=== PATIENT | female | born 1960 | race Caucasian/White ===

== ENCOUNTER → 2023-02-25 07:41 | Outpatient (BNVA) | payer OTHER, SELFPAY | PROVIDERS: PCP Nurse Practitioner Family; Visit Provider Psychiatry & Neurology Neurology | DX: G51.32 Clonic hemifacial spasm, left (principal); R06.83 Snoring | CPT/HCPCS: 99202 ==

== ENCOUNTER 2023-05-15 07:57 | Outpatient (AMB) | payer MEDICAID, SELFPAY ==
--- NOTE | 2023-05-15 08:02 | MHC.OFFVIS ---
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 registered nurses, ID #[id number] utilized . She had a home sleep study done but was told that it was inconclusive. MRI or MRA ordered but not done due to extreme claustrophobia and anxiety. She had PRN medication for anxiety, but forgot to take it. Pt needed to reschedule, but she did not reschedule yet. Eyelid twitching about same, left eye and face twitching with occasional twitching on her right eye. Pt reports that she drinks coffee at least 1-2 cups a day, but not drink enough water. She is on magnesium oxide 250 mg daily, but she takes occaisonally. [facility] Medical History Snoring Neck pain Depression Obesity Asthma HTN (hypertension) Hemifacial spasm of left side of face Surgical History H/O: hysterectomy Hx of cholecystectomy H/O abdominoplasty Hx of bilateral breast reduction surgery H/O gastric sleeve Family History Father Cancer Mother Diabetes HTN (hypertension) Pacemaker Social History Alcohol intake: current Patient Tobacco Use Status: Never used Tobacco Review of Systems Const All systems reviewed & are unremarkable except as noted in HPI and below Physical Exam Vital Signs: Last Vital Signs Pulse 75 05/15/23 08:11 BP 102/62 05/15/23 08:11 Pulse Ox 98 05/15/23 08:11 Oxygen Delivery Method Room Air 05/15/23 08:11 Const General: cooperative and comfortable Nutritional Appearance: obese Orientation/consciousness: patient oriented x3 Limitations: physical limitations Neuro Other: mild asymmetry of face with enlarged palpebral fissures , flattening of nasolabial fold left eye and facial twitching intermittently General: patient oriented x3, tone normal, moves all extremities and no focal motor deficits Cranial nerves: Yes Facial sensation intact/muscles of mastication intact, Yes Bilaterally intact EOM present, Yes Nystagmus not present, Yes Midline tongue present and Yes Symmetric palate elevation present Cognition (Neuro): normal cognition Gait exam (Neuro): Antalgic gait present Deep tendon reflexes (DTR's): Right triceps reflex intensity grade: 1+, Left triceps reflex intensity grade: 1+, Rt Biceps (C5, C6): 1+, Left biceps reflex intensity grade: 1+, Right brachioradialis reflex intensity grade: 1+, Left brachioradialis reflex intensity grade: 1+, Right patellar reflex intensity grade: 1+ and Left patellar reflex intensity grade: 1+ Coordination: [id number] test normal Assessment & Plan Assessment & Plan (1) Hemifacial spasm of left side of face: Code(s): G51.32 - Clonic hemifacial spasm, left (2) Snoring: Code(s): R06.83 - Snoring Plan Central scheduling information given patient to reschedule MRI and MRA Brain. Will consider treatment with botox after MRI. She had home sleep test and was told that it was inconclusive, advised patient to undergo in lab study. Advised patient to limit caffeine intake and drink more water to prevent dehydration. Advised patient to try magnesium glycinate 400 mg daily. Orders: Orders RT PSG in-lab sleep study 05/15/23 E66.9 - Obesity, unspecified, I10 - Essential (primary) hypertension, R06.83 - Snoring, R40.0 - Somnolence Coding Level of Care Code Est Pt Level 4 (07975) Diagnoses Hemifacial spasm of left side of face G51.32 Snoring R06.83
[2023-05-15 08:11] VITALS: BP 102/62; PULSE 75; O2SAT 98
== END 2023-05-15 08:33 | disposition home or self-care (01) ==
PROVIDERS: PCP Nurse Practitioner Family; Visit Provider Nurse Practitioner Family
DX: G51.32 Clonic hemifacial spasm, left (principal); R06.83 Snoring
CPT/HCPCS: 99214

== ENCOUNTER → 2023-05-15 07:57 | Outpatient (BNVA) | payer OTHER, SELFPAY | PROVIDERS: PCP Nurse Practitioner Family; Visit Provider Nurse Practitioner Family | DX: G51.32 Clonic hemifacial spasm, left (principal); R40.0 Somnolence; R06.83 Snoring; E66.9 Obesity, unspecified; I10 Essential (primary) hypertension; F40.240 Claustrophobia; F41.9 Anxiety disorder, unspecified | CPT/HCPCS: 99212 ==

== ENCOUNTER 2023-06-24 10:42 | Outpatient (AMB) | payer OTHER, SELFPAY ==
--- NOTE | 2023-06-24 11:02 | MHC.OFFVIS ---
Intake Vital Signs 06/24/23 11:14 Weight 202 lb BP 112/84 Blood Pressure Location Lt brachial Position Sitting Intake Visit Reasons: 3 mo f/o- Chronic eye twitching - Confirmed Intake Note: F/U eye twitching Radio Repair Teacher Required: Yes Radio Repair Teacher Name: [id number] Allergies fish Allergy (Severe, Uncoded 06/24/23 11:04) Rash HPI HPI Comments History of Present Illness Details 63 y/o female patient presents for follow up of eyelid twitching and daytime sleepiness. Eye twitching more at night, and it disrupt her sleep. She had a home sleep study done but was told that it was inconclusive. MRI or MRA ordered but not done due to extreme claustrophobia and anxiety. She had PRN medication for anxiety, but forgot to take it. Pt needed to reschedule, but she did not reschedule yet. Eyelid twitching about same, left eye and face twitching with occasional twitching on her right eye. Pt reports that she drinks coffee at least 1-2 cups a day, but not drink enough water. [facility] Medical History Snoring Neck pain Depression Obesity Asthma HTN (hypertension) Hemifacial spasm of left side of face Surgical History H/O: hysterectomy Hx of cholecystectomy H/O abdominoplasty Hx of bilateral breast reduction surgery H/O gastric sleeve Family History Father Cancer Mother Diabetes HTN (hypertension) Pacemaker Social History (Updated 06/24/23 @ 11:14 by Vita Smith CMA) Alcohol intake: current Patient Tobacco Use Status: Never used Tobacco Review of Systems Const All systems reviewed & are unremarkable except as noted in HPI and below Physical Exam Vital Signs: Last Vital Signs BP 112/84 06/24/23 11:14 Const General: cooperative and comfortable Nutritional Appearance: obese Orientation/consciousness: patient oriented x3 Limitations: physical limitations Neuro Other: mild asymmetry of face with enlarged palpebral fissures , flattening of nasolabial fold left eye and facial twitching intermittently General: patient oriented x3, tone normal, moves all extremities and no focal motor deficits Cranial nerves: Yes Facial sensation intact/muscles of mastication intact, Yes Bilaterally intact EOM present, Yes Nystagmus not present, Yes Midline tongue present and Yes Symmetric palate elevation present Cognition (Neuro): normal cognition Gait exam (Neuro): Antalgic gait present Deep tendon reflexes (DTR's): Right triceps reflex intensity grade: 1+, Left triceps reflex intensity grade: 1+, Rt Biceps (C5, C6): 1+, Left biceps reflex intensity grade: 1+, Right brachioradialis reflex intensity grade: 1+, Left brachioradialis reflex intensity grade: 1+, Right patellar reflex intensity grade: 1+ and Left patellar reflex intensity grade: 1+ Coordination: wcfqlc-[id number]-rqai test normal Assessment & Plan Assessment & Plan (1) Hemifacial spasm of left side of face: Code(s): G51.32 - Clonic hemifacial spasm, left (2) Snoring: Code(s): R06.83 - Snoring Plan Central scheduling information given patient to reschedule MRI and MRA Brain. Will consider treatment with botox after MRI. She had home sleep test and was told that it was inconclusive, advised patient to undergo in lab study. Advised patient to limit caffeine intake and drink more water to prevent dehydration. Advised patient to try magnesium glycinate 400 mg daily. Coding Level of Care Code Est Pt Level 3 (15997) Diagnoses Hemifacial spasm of left side of face G51.32 Snoring R06.83
[2023-06-24 11:14] VITALS: BP 112/84
== END 2023-06-24 11:31 | disposition home or self-care (01) ==
PROVIDERS: PCP Nurse Practitioner Family; Visit Provider Nurse Practitioner Family
DX: G51.32 Clonic hemifacial spasm, left (principal); R06.83 Snoring
CPT/HCPCS: 99213

== ENCOUNTER → 2023-06-24 10:42 | Outpatient (BNVA) | payer OTHER, SELFPAY | PROVIDERS: PCP Nurse Practitioner Family; Visit Provider Nurse Practitioner Family | DX: G51.32 Clonic hemifacial spasm, left (principal); R06.83 Snoring | CPT/HCPCS: 99212 ==

== ENCOUNTER 2023-09-23 10:00 | Outpatient (AMB) | payer OTHER, SELFPAY ==
--- NOTE | 2023-09-23 10:35 | A.OFFVIS_ITS ---
Intake Vital Signs 09/23/23 10:43 Height 4 ft 11 in Weight 200 lb BMI 40.4 BP 114/80 Blood Pressure Location Lt brachial Position Sitting Pulse 73 Pulse Source Pulse Oximeter Pulse Oximetry (%) 95 Oxygen Delivery Method Room Air Intake Visit Reasons: 3 mnts f/u for chronic Eye twitching CONF Intake Note: Patient presents three month F/U. left eye twitching a lot and can't sleep and during the day needs to take breaks to close her eyes so they could rest Allergies fish Allergy (Severe, Uncoded 06/24/23 11:04) Rash HPI HPI Comments History of Present Illness Details 63 y/o female patient presents for follo w up of eyelid twitching and daytime sleepiness. Eyelid twitching about same, left eye and face twitching with occasional twitching on her right eye. Pt tried magnesium and reduce caffeine intake, but not helpful. Eye twitching more at night, and it disrupt her sleep. She had a home sleep study done but was told that it was inconclusive. MRI and MRA ordered but not done due to extreme claustrophobia and anxiety. She had PRN medication for anxiety, but forgot to take it. Pt needed to reschedule, but she did not reschedule yet. [facility] Medical History Snoring Neck pain Depression Obesity Asthma HTN (hypertension) Hemifacial spasm of left side of face Surgical History H/O: hysterectomy Hx of cholecystectomy H/O abdominoplasty Hx of bilateral breast reduction surgery H/O gastric sleeve Family History Father Cancer Mother Diabetes HTN (hypertension) Pacemaker Social History Alcohol intake: current Patient Tobacco Use Status: Never used Tobacco Physical Exam Vital Signs: Last Vital Signs Pulse 73 09/23/23 10:43 BP 114/80 09/23/23 10:43 Pulse Ox 95 09/23/23 10:43 Oxygen Delivery Method Room Air 09/23/23 10:43 BMI result Body Mass Index 40.4 Assessment & Plan Assessment & Plan (1) Hemifacial spasm of left side of face: Code(s): G51.32 - Clonic hemifacial spasm, left (2) Snoring: Code(s): R06.83 - Snoring Plan Ordered open MRI for brain. Will try MRA after MRI done. Will consider treatment with botox after MRI. Advised patient to continue to take magnesium glycinate 400 mg daily. Orders: Orders MR head/brain wo/w con Today G51.32 - Clonic hemifacial spasm, left Coding Level of Care Code Est Pt Level 3 (35669) Diagnoses Hemifacial spasm of left side of face G51.32 Snoring R06.83
[2023-09-23 10:43] VITALS: BP 114/80; PULSE 73; O2SAT 95; BMI 40.4
== END 2023-09-23 11:15 | disposition home or self-care (01) ==
PROVIDERS: PCP Nurse Practitioner Family; Visit Provider Nurse Practitioner Family
DX: G51.32 Clonic hemifacial spasm, left (principal); R06.83 Snoring
CPT/HCPCS: 99213

== ENCOUNTER → 2023-09-23 10:00 | Outpatient (BNVA) | payer OTHER, SELFPAY | PROVIDERS: PCP Nurse Practitioner Family; Visit Provider Nurse Practitioner Family | DX: G51.32 Clonic hemifacial spasm, left (principal); R06.83 Snoring | CPT/HCPCS: 99212 ==

== ENCOUNTER 2023-12-17 08:14 | Outpatient (AMB) | payer OTHER, SELFPAY ==
--- NOTE | 2023-12-17 08:24 | MHC.OFFVIS ---
Intake Vital Signs 12/17/23 08:25 Height 4 ft 11 in Weight 200 lb BMI 40.4 BP 128/78 Blood Pressure Location Rt brachial Respiration 17 Pulse 79 Pulse Source Pulse Oximeter Pulse Oximetry (%) 97 Oxygen Delivery Method Room Air Intake Visit Reasons: Follow up-CONF Intake Note: Pt presents for 3 month follow up for facial spasms. 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 Required: No Allergies fish Allergy (Severe, Uncoded 12/17/23 08:25) Rash Medication List - Last Reconciled 12/17/23 by Ghislaine Anna MD albuterol 90 mcg/actuation mcg inhalation amlodipine 10 mg PO DAILY ferrous sulfate 325 mg PO DAILY fluticasone propionate 50 mcg/actuation 2 sprays intranasal QAM lisinopril-hydrochlorothiazide 20-12.5 mg 1 tab PO DAILY magnesium glycinate 400 mg PO DAILY magnesium oxide 250 mg PO DAILY methocarbamol mg PO naproxen 500 mg PO BID sertraline 25 mg PO .at night triamcinolone acetonide 0.1% topical Q OTHER DAY PRN HPI HPI Comments History of Present Illness Details 63 y/o female patient presents for follow up of eyelid twitching and daytime sleepiness. Eyelid twitching about same, left eye and face twitching with occasional twitching on her right eye. Pt tried magnesium and reduce caffeine intake, but not helpful. Eye twitching more at night, and it disrupt her sleep. She had a home sleep study done but was told that it was inconclusive. MRI and MRA ordered but not done due to extreme claustrophobia and anxiety. She had PRN medication for anxiety, but forgot to take it. COUNTS INCLUDE 234 BEDS AT THE [facility] Medical History Snoring Neck pain Depression Obesity Asthma HTN (hypertension) Hemifacial spasm of left side of face Surgical History H/O: hysterectomy Hx of cholecystectomy H/O abdominoplasty Hx of bilateral breast reduction surgery H/O gastric sleeve Family History Father Cancer Mother Diabetes HTN (hypertension) Pacemaker Social History Alcohol intake: current Patient Tobacco Use Status: Never used Tobacco Physical Exam Vital Signs: Last Vital Signs Pulse 79 12/17/23 08:25 Resp 17 12/17/23 08:25 BP 128/78 12/17/23 08:25 Pulse Ox 97 12/17/23 08:25 Oxygen Delivery Method Room Air 12/17/23 08:25 BMI result Body Mass Index 40.4 Const General: cooperative and comfortable Nutritional Appearance: obese Orientation/consciousness: patient oriented x3 Limitations: physical limitations Neuro Other: mild asymmetry of face with enlarged palpebral fissures , flattening of nasolabial fold left eye and facial twitching intermittently General: patient oriented x3, tone normal, moves all extremities and no focal motor deficits Cranial nerves: Yes Facial sensation intact/muscles of mastication intact, Yes Bilaterally intact EOM present, Yes Nystagmus not present, Yes Midline tongue present and Yes Symmetric palate elevation present Cognition (Neuro): normal cognition Gait exam (Neuro): Antalgic gait present Deep tendon reflexes (DTR's): Right triceps reflex intensity grade: 1+, Left triceps reflex intensity grade: 1+, Rt Biceps (C5, C6): 1+, Left biceps reflex intensity grade: 1+, Right brachioradialis reflex intensity grade: 1+, Left brachioradialis reflex intensity grade: 1+, Right patellar reflex intensity grade: 1+ and Left patellar reflex intensity grade: 1+ Coordination: [id number]-[id number] test normal Assessment & Plan Assessment & Plan (1) Hemifacial spasm of left side of face: Code(s): G51.32 - Clonic hemifacial spasm, left (2) Snoring: Code(s): R06.83 - Snoring Plan Ordered open MRI and MRA with premedications Treatment with BOTOX after MRI. Advised patient to continue to take magnesium glycinate 400 mg daily. HST on 2020 was normal will cosnider in lab sleep study Orders: Orders MR angio head wo con 04/05/23 G51.32 - Clonic hemifacial spasm, left Medications: New lorazepam 0.5 mg PO DAILY PRN 2 tabs 0RF anxiety Coding Level of Care Code Est Pt Level 4 (23263) Diagnoses Hemifacial spasm of left side of face G51.32 Snoring R06.83
[2023-12-17 08:25] VITALS: BP 128/78; PULSE 79; RESP 17; O2SAT 97; BMI 40.4
== END 2023-12-17 08:47 | disposition home or self-care (01) ==
PROVIDERS: PCP Nurse Practitioner Family; Visit Provider Psychiatry & Neurology Neurology
DX: G51.32 Clonic hemifacial spasm, left (principal); R06.83 Snoring
CPT/HCPCS: 99214

== ENCOUNTER → 2023-12-17 08:14 | Outpatient (BNVA) | payer OTHER, SELFPAY | PROVIDERS: PCP Nurse Practitioner Family; Visit Provider Psychiatry & Neurology Neurology | DX: G51.32 Clonic hemifacial spasm, left (principal); R06.83 Snoring | CPT/HCPCS: 99212 ==

== ENCOUNTER 2024-02-19 09:11 | Outpatient (AMB) | payer OTHER, SELFPAY ==
--- NOTE | 2024-02-19 09:28 | A.OFFVIS_ITS ---
Vital Signs 02/19/24 09:38 Height 4 ft 11 in Weight 192 lb 2 oz BMI 38.8 BP 115/80 Blood Pressure Location Lt brachial Position Sitting Respiration 17 Pulse 79 Pulse Source Pulse Oximeter Pulse Oximetry (%) 96 Oxygen Delivery Method Room Air Intake Visit Reasons: Botox - first- LVM w/mess to bring ins card Intake Note: Patient presents for Botox. Economics Analyst Required: Yes Economics Analyst Name: Susan Rico Allergies fish Allergy (Severe, Uncoded 12/17/23 08:25) Rash Medication List - Last Reconciled 02/19/24 by Ghislaine Anna MD albuterol 90 mcg/actuation mcg inhalation amlodipine 10 mg PO DAILY ferrous sulfate 325 mg PO DAILY fluticasone propionate 50 mcg/actuation 2 sprays intranasal QAM lisinopril-hydrochlorothiazide 20-12.5 mg 1 tab PO DAILY lorazepam 0.5 mg PO DAILY PRN magnesium glycinate 400 mg PO DAILY magnesium oxide 250 mg PO DAILY methocarbamol mg PO naproxen 500 mg PO BID sertraline 25 mg PO .at night triamcinolone acetonide 0.1% topical Q OTHER DAY PRN HPI Comments Details: 64y/o female comes for treatment of her hemifacial spasm with botox Botulinum toxin type A Lot no [id number] 100 units Exp 01/2026 was diluted with 6cc of normal saline at a concentration of 5 units in 0.1 cc. Side effects were discussed and an informed consent was obtained. Muscles injected left Lateral canthus - 20 units each left Lateral Lower eyelid-15 units each Left Nasolabial fold 10 units each Left zygomaticus 10 units Left mentalis 5 units Total used 60 discarded 40 units PFSH Medical History Snoring Neck pain Depression Obesity Asthma HTN (hypertension) Hemifacial spasm of left side of face Surgical History H/O: hysterectomy Hx of cholecystectomy H/O abdominoplasty Hx of bilateral breast reduction surgery H/O gastric sleeve Family History Father Cancer Mother Diabetes HTN (hypertension) Pacemaker Social History Alcohol intake: current Patient Tobacco Use Status: Never used Tobacco Physical Exam Vital Signs: Last Vital Signs Pulse 79 02/19/24 09:38 Resp 17 02/19/24 09:38 BP 115/80 02/19/24 09:38 Pulse Ox 96 02/19/24 09:38 Oxygen Delivery Method Room Air 02/19/24 09:38 BMI result Body Mass Index 38.8 Const General: cooperative and comfortable Nutritional Appearance: obese Orientation/consciousness: patient oriented x3 Limitations: physical limitations Neuro Other: mild asymmetry of face with enlarged palpebral fissures , flattening of nasolabial fold left eye and facial twitching intermittently General: patient oriented x3, tone normal, moves all extremities and no focal motor deficits Cranial nerves: Yes Facial sensation intact/muscles of mastication intact, Yes Bilaterally intact EOM present, Yes Nystagmus not present, Yes Midline tongue present and Yes Symmetric palate elevation present Cognition (Neuro): normal cognition Gait exam (Neuro): Antalgic gait present Deep tendon reflexes (DTR's): Right triceps reflex intensity grade: 1+, Left triceps reflex intensity grade: 1+, Rt Biceps (C5, C6): 1+, Left biceps reflex intensity grade: 1+, Right brachioradialis reflex intensity grade: 1+, Left brachioradialis reflex intensity grade: 1+, Right patellar reflex intensity grade: 1+ and Left patellar reflex intensity grade: 1+ Coordination: [id number] test normal Office Procedures Botulinum toxin Injection 05247 - Facial Nerve Procedure code (CPT) selection complete Office Meds onabotulinumtoxinA 100 unit solution for injection Performing Provider: Ghislaine Anna MD [place] [facility] [place] [facility] Administered by: Ghislaine Anna MD on 02/19/24 09:59 Dose Route Admin Location Dispensed Lot Number Expiration Date [facility] Fruit 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 Comments: see hpi Assessment & Plan Assessment & Plan (1) Hemifacial spasm of left side of face: Code(s): G51.32 - Clonic hemifacial spasm, left Category: Medical Plan Patient tolerated the procedure well she will call with any side effects Orders: Orders AMB Botulinum toxin Injection Today G51.32 - Clonic hemifacial spasm, left Medications: New onabotulinumtoxinA 100 units subcut ONCE 1 ea 0RF hemifacial spasm G51.32 - Clonic hemifacial spasm, left Coding Level of Care Code Est Pt Level 1 (86449) Diagnoses Hemifacial spasm of left side of face G51.32 CPT Codes Botox Injection - Botox 2: 47081 - Facial Nerve ([id number])
[2024-02-19 09:38] VITALS: BP 115/80; PULSE 79; RESP 17; O2SAT 96; BMI 38.8
== END 2024-02-19 09:54 | disposition home or self-care (01) ==
PROVIDERS: PCP Nurse Practitioner Family; Visit Provider Psychiatry & Neurology Neurology
DX: G51.32 Clonic hemifacial spasm, left (principal)
CPT/HCPCS: 64612

== ENCOUNTER → 2024-02-19 09:11 | Outpatient (BNVA) | payer OTHER, SELFPAY | PROVIDERS: PCP Nurse Practitioner Family; Visit Provider Psychiatry & Neurology Neurology | DX: G51.32 Clonic hemifacial spasm, left (principal) | CPT/HCPCS: 64612; 99211; J0585 ==

== ENCOUNTER 2024-07-14 07:21 | Outpatient (AMB) | payer OTHER, SELFPAY ==
--- NOTE | 2024-07-14 07:30 | A.OFFVIS_ITS ---
Vital Signs 07/14/24 07:30 Height 4 ft 11 in Intake Visit Reasons: Botox Intake Note: Patient presents for botox injection Allergies fish Allergy (Severe, Uncoded 07/14/24 07:34) Rash Medication List - Last Reconciled 07/14/24 by Ghislaine Anna MD albuterol 90 mcg/actuation mcg inhalation amlodipine 10 mg PO DAILY ferrous sulfate 325 mg PO DAILY fluticasone propionate 50 mcg/actuation 2 sprays intranasal QAM lisinopril-hydrochlorothiazide 20-12.5 mg 1 tab PO DAILY lorazepam 0.5 mg PO DAILY PRN magnesium glycinate 400 mg PO DAILY magnesium oxide 250 mg PO DAILY methocarbamol mg PO naproxen 500 mg PO BID sertraline 25 mg PO .at night triamcinolone acetonide 0.1% topical Q OTHER DAY PRN HPI Comments Details: 64y/o female comes for treatment of her hemifacial spasm with botox Botulinum toxin type A Lot no [id number] 100 units Exp 10/2026 was diluted with 1cc of normal saline at a concentration of 5 units in 0.1 cc. Side effects were discussed and an informed consent was obtained. Muscles injected left Lateral canthus - 20 units each left Lateral Lower eyelid-15 units each Left Nasolabial fold 10 units each Left zygomaticus 10 units Left mentalis 5 units Total used 60 discarded 40 units MRA was normal [facility] Medical History Snoring Neck pain Depression Obesity Asthma HTN (hypertension) Hemifacial spasm of left side of face Surgical History H/O: hysterectomy Hx of cholecystectomy H/O abdominoplasty Hx of bilateral breast reduction surgery H/O gastric sleeve Family History Father Cancer Mother Diabetes HTN (hypertension) Pacemaker Social History Alcohol intake: current Patient Tobacco Use Status: Never used Tobacco Physical Exam Const General: cooperative and comfortable Nutritional Appearance: obese Orientation/consciousness: patient oriented x3 Limitations: physical limitations Neuro Other: mild asymmetry of face with enlarged palpebral fissures , flattening of nasolabial fold left eye and facial twitching intermittently General: patient oriented x3, tone normal, moves all extremities and no focal motor deficits Cranial nerves: Yes Facial sensation intact/muscles of mastication intact, Yes Bilaterally intact EOM present, Yes Nystagmus not present, Yes Midline tongue present and Yes Symmetric palate elevation present Cognition (Neuro): normal cognition Gait exam (Neuro): Antalgic gait present Deep tendon reflexes (DTR's): Right triceps reflex intensity grade: 1+, Left triceps reflex intensity grade: 1+, Rt Biceps (C5, C6): 1+, Left biceps reflex intensity grade: 1+, Right brachioradialis reflex intensity grade: 1+, Left brachioradialis reflex intensity grade: 1+, Right patellar reflex intensity grade: 1+ and Left patellar reflex intensity grade: 1+ Coordination: [id number] test normal Office Procedures Botulinum toxin Injection 79212 - Facial Nerve Procedure code (CPT) selection complete Office Meds onabotulinumtoxinA 100 unit solution for injection Performing Provider: Ghislaine Anna MD Performing Location: [facility] [place] [facility] Administered by: Ghislaine Anna MD on 07/14/24 08:15 Dose Route Admin Location Dispensed Lot Number Expiration Date [facility] 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 Orders: Orders MR head/brain wo con Today G51.32 - Clonic hemifacial spasm, left AMB Botulinum toxin Injection Today G51.32 - Clonic hemifacial spasm, left Medications: New onabotulinumtoxinA 100 units subcut ONCE 1 ea 0RF hemifacial spasm G51.32 - Clonic hemifacial spasm, left Coding Level of Care Code Est Pt Level 1 (94290) Diagnoses Hemifacial spasm of left side of face G51.32 CPT Codes Botox Injection - Botox 2: 90314 - Facial Nerve ([id number])
== END 2024-07-14 08:06 | disposition home or self-care (01) ==
PROVIDERS: PCP Nurse Practitioner Family; Visit Provider Psychiatry & Neurology Neurology
DX: G51.32 Clonic hemifacial spasm, left (principal)
CPT/HCPCS: 64612

== ENCOUNTER → 2024-07-14 07:21 | Outpatient (BNVA) | payer OTHER, SELFPAY | PROVIDERS: PCP Nurse Practitioner Family; Visit Provider Psychiatry & Neurology Neurology | DX: G51.32 Clonic hemifacial spasm, left (principal) | CPT/HCPCS: 64612; 99211; J0585 ==

== ENCOUNTER 2024-08-19 07:46 | Outpatient (REF) | payer OTHER, SELFPAY | END 2024-08-19 07:47 | disposition home or self-care (01) | LOC: HO.MRI 07:46 | PROVIDERS: PCP Nurse Practitioner Family; Visit Provider Psychiatry & Neurology Neurology | DX: G51.32 Clonic hemifacial spasm, left (principal) | CPT/HCPCS: 70551 ==

== ENCOUNTER 2024-12-22 08:00 | Outpatient (AMB) | payer OTHER, SELFPAY ==
--- NOTE | 2024-12-22 08:03 | A.OFFVIS_ITS ---
Vital Signs 12/22/24 08:05 Height 4 ft 11 in Weight 194 lb BMI 39.2 Pulse 81 Pulse Source Pulse Oximeter Pulse Oximetry (%) 98 Oxygen Delivery Method Room Air Intake Visit Reasons: Botox Intake Note: patient presents for Botox injection pharmacy supplied Allergies fish Allergy (Severe, Uncoded 12/22/24 08:05) Rash Medication List - Last Reconciled 12/22/24 by Ghislaine Anna MD albuterol 90 mcg/actuation mcg inhalation amlodipine 10 mg PO DAILY ferrous sulfate 325 mg PO DAILY fluticasone propionate 50 mcg/actuation 2 sprays intranasal QAM lisinopril-hydrochlorothiazide 20-12.5 mg 1 tab PO DAILY lorazepam 0.5 mg PO DAILY PRN magnesium glycinate 400 mg PO DAILY magnesium oxide 250 mg PO DAILY methocarbamol mg PO naproxen 500 mg PO BID omeprazole 20 mg PO DAILY sertraline 25 mg PO .at night triamcinolone acetonide 0.1% topical Q OTHER DAY PRN HPI Comments Details: 64y/o female comes for treatment of her hemifacial spasm with botox Botulinum toxin type A Lot no [id number] 100 units Exp 12/2026 was diluted with 1cc of normal saline at a concentration of 5 units in 0.1 cc. Side effects were discussed and an informed consent was obtained. Muscles injected left Lateral canthus - 20 units each left Lateral Lower eyelid-15 units each Left Nasolabial fold 10 units each Left zygomaticus 10 units Left mentalis 5 units Total used 60 discarded 40 units MRA was normal [facility] Medical History Snoring Neck pain Depression Obesity Asthma HTN (hypertension) Hemifacial spasm of left side of face Surgical History H/O: hysterectomy Hx of cholecystectomy H/O abdominoplasty Hx of bilateral breast reduction surgery H/O gastric sleeve Family History Father Cancer Mother Diabetes HTN (hypertension) Pacemaker Social History Alcohol intake: current Patient Tobacco Use Status: Never used Tobacco Physical Exam Vital Signs: Last Vital Signs Pulse 81 12/22/24 08:05 Pulse Ox 98 04/22/25 08:05 Oxygen Delivery Method Room Air 12/22/24 08:05 BMI result Body Mass Index 39.2 Const General: cooperative and comfortable Nutritional Appearance: obese Orientation/consciousness: patient oriented x3 Limitations: physical limitations Neuro Other: mild asymmetry of face with enlarged palpebral fissures , flattening of nasolabial fold left eye and facial twitching intermittently General: patient oriented x3, tone normal, moves all extremities and no focal motor deficits Cranial nerves: Yes Facial sensation intact/muscles of mastication intact, Yes Bilaterally intact EOM present, Yes Nystagmus not present, Yes Midline tongue present and Yes Symmetric palate elevation present Cognition (Neuro): normal cognition Gait exam (Neuro): Antalgic gait present Deep tendon reflexes (DTR's): Right triceps reflex intensity grade: 1+, Left triceps reflex intensity grade: 1+, Rt Biceps (C5, C6): 1+, Left biceps reflex intensity grade: 1+, Right brachioradialis reflex intensity grade: 1+, Left brachioradialis reflex intensity grade: 1+, Right patellar reflex intensity grade: 1+ and Left patellar reflex intensity grade: 1+ Coordination: [id number] test normal Office Procedures Botulinum toxin Injection 42929 - Facial Nerve Procedure code (CPT) selection complete Office Meds onabotulinumtoxinA 100 unit solution for injection Performing Provider: Ghislaine Anna MD Performing Location: [facility] [place] [facility] Administered by: Ghsilaine Anna MD on 12/22/24 08:33 Dose Route Admin Location Dispensed Lot Number Expiration Date [facility] 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 Orders: Orders AMB Botulinum toxin Injection Today G51.32 - Clonic hemifacial spasm, left Medications: New onabotulinumtoxinA 100 units subcut ONCE 1 ea 0RF hemifacial spasm G51.32 - Clonic hemifacial spasm, left Coding Level of Care Code Est Pt Level 1 (88562) Diagnoses Hemifacial spasm of left side of face G51.32 CPT Codes Botox Injection - Botox 2: 34850 - Facial Nerve ([id number])
[2024-12-22 08:05] VITALS: PULSE 81; O2SAT 98; BMI 39.2
--- OUTSIDE RECORDS SUMMARY | 2024-12-22 08:07 | XMS_ITS | Clinical Summary ---
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 Name Role Phone Unavailable Primary Care Provider Unavailabl e Social History Tobacco Use Types Packs/Day Years Used Date Smoking Tobacco: Never Assessed Comments Unknown Sex and Gender Information Value Date Recorded Sex Assigned at Not on file Legal Sex Female 2:32 PM EST Gender Identity Not on file Sexual Orientation Not on file Plan of Treatment Health Maintenance Due Date Last Done Comments Breast Cancer Screening 1960 DTaP,Tdap,and Td Vaccines (1 - Tdap) 1981 Cervical Cancer Screening: P ap Smear 1983 Pneumococcal Vaccine: 50+ Ye ars (1 of 1 - PCV) 01/29/2012 Zoster Vaccines (1 of 2) 01/29/2012 Colorectal Cancer Screening: Colonoscopy 10/01/2023 Depression Screening 10/01/2023 HIV Screening 10/01/2023 Hepatitis C Screening 10/01/2023 Social Influencers of Health Screening 10/01/2023 COVID-19 Vaccine ( - 2023-2 5 season) 2024 Influenza Vaccine (Season Ended) 2025 RSV Immunization Adult Patie nts (1 - 1-dose 75+ series) 2037 HIB Vaccines Aged Out No longer eligi ble based on patient's age to complete this topic HPV Vaccines Aged Out No longer eligi ble based on patient's age to complete this topic Hepatitis A Vaccines Aged Out No long er eligible based on patient's age to complete this topic Hepatitis B Vaccines Aged Out No long er eligible based on patient's age to complete this topic IPV Vaccines Aged Out No longer eligi ble based on patient's age to complete this topic MMR Vaccines Aged Out No longer eligi ble based on patient's age to complete this topic Meningococcal ACWY Vaccine Aged Out N o longer eligible based on patient's age to complete this topic Meningococcal B Vaccine Aged Out No l onger eligible based on patient's age to complete this topic Pneumococcal Vaccine: Pediat rics (0 to 5 Years) and At-Risk Patients (6 to 64 Years) Aged Out No longer eligible b ased on patient's age to complete this topic RSV Immunization Patients Un dhaval 20 months Aged Out No longer eligible b ased on patient's age to complete this topic Varicella Vaccines Aged Out No longer eligible based on patient's age to complete this topic
== END 2024-12-22 08:24 | disposition home or self-care (01) ==
LOC: HO.HSMS 08:01
PROVIDERS: PCP Nurse Practitioner Family; Visit Provider Psychiatry & Neurology Neurology
DX: G51.32 Clonic hemifacial spasm, left (principal)
CPT/HCPCS: 64612

== ENCOUNTER → 2024-12-22 08:00 | Outpatient (BNVA) | payer OTHER, SELFPAY | PROVIDERS: PCP Nurse Practitioner Family; Visit Provider Psychiatry & Neurology Neurology | DX: G51.32 Clonic hemifacial spasm, left (principal) | CPT/HCPCS: 64612; 99211; J0585 ==

== ENCOUNTER 2025-05-11 08:12 | Outpatient (AMB) | payer OTHER, SELFPAY ==
[2025-05-11 08:29] VITALS: BP 112/74; PULSE 70; O2SAT 97; BMI 39.0
--- NOTE | 2025-05-11 08:29 | A.OFFVIS_ITS ---
Vital Signs 05/11/25 08:29 Height 4 ft 11 in Weight 193 lb 4 oz BMI 39.0 BP 112/74 Blood Pressure Location Rt brachial Position Sitting Pulse 70 Pulse Source Pulse Oximeter Pulse Oximetry (%) 97 Oxygen Delivery Method Room Air Intake Visit Reasons: Botox Intake Note: Botox Guard Supervisor Required: Yes Guard Supervisor Services: Guard Supervisor Present Guard Supervisor Name: Napoleon Lofton ID: [id number] iPad Accompanied by: Self / Same As Patient Allergies fish Allergy (Unknown, Uncoded 05/11/25 08:30) Rash Medication List - Last Reconciled 05/11/25 by Ghislaine Anna MD albuterol 90 mcg/actuation mcg inhalation amlodipine 10 mg PO DAILY lisinopril-hydrochlorothiazide 20-12.5 mg 1 tab PO DAILY lorazepam 0.5 mg PO DAILY PRN magnesium glycinate 400 mg PO DAILY magnesium oxide 250 mg PO DAILY methocarbamol mg PO naproxen 500 mg PO BID omeprazole 20 mg PO DAILY sertraline 25 mg PO .at night triamcinolone acetonide 0.1% topical Q OTHER DAY PRN HPI Comments Details: 65y/o female comes for treatment of her hemifacial spasm with botox Botulinum toxin type A Lot no [id number] 100 units Exp 06/2027 was diluted with 1cc of normal saline at a concentration of 5 units in 0.1 cc. Side effects were discussed and an informed consent was obtained. Muscles injected left Lateral canthus - 20 units each left Lateral Lower eyelid-15 units each Left Nasolabial fold 10 units each Left zygomaticus 10 units Left mentalis 5 units Total used 60 discarded 40 units MRA was normal [facility] Medical History Snoring Neck pain Depression Obesity Asthma HTN (hypertension) Hemifacial spasm of left side of face Surgical History H/O: hysterectomy Hx of cholecystectomy H/O abdominoplasty Hx of bilateral breast reduction surgery H/O gastric sleeve Family History Father Cancer Mother Diabetes HTN (hypertension) Pacemaker Social History Alcohol intake: current Patient Tobacco Use Status: Never used Tobacco Physical Exam Vital Signs: Last Vital Signs Pulse 70 05/11/25 08:29 BP 112/74 05/11/25 08:29 Pulse Ox 97 05/11/25 08:29 Oxygen Delivery Method Room Air 05/11/25 08:29 BMI result Body Mass Index 39.0 Const General: cooperative and comfortable Nutritional Appearance: obese Orientation/consciousness: patient oriented x3 Limitations: physical limitations Neuro Other: mild asymmetry of face with enlarged palpebral fissures , flattening of nasola bial fold left eye and facial twitching intermittently General: patient oriented x3, tone normal, moves all extremities and no focal motor deficits Cranial nerves: Yes Facial sensation intact/muscles of mastication intact, Yes Bilaterally intact EOM present, Yes Nystagmus not present, Yes Midline tongue present and Yes Symmetric palate elevation present Cognition (Neuro): normal cognition Gait exam (Neuro): Antalgic gait present Coordination: [id number] test normal Office Procedures Botulinum toxin Injection 54718 - Facial Nerve Procedure code (CPT) selection complete Office Meds onabotulinumtoxinA 100 unit solution for injection Performing Provider: Ghislaine Anna MD Performing Location: [facility] [facility] [place] [facility] Administered by: Ghislaine Anna MD on 05/11/25 09:12 Dose Route Admin Location Dispensed Lot Number Expiration Date [facility] 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 Orders: Orders AMB Botulinum toxin Injection Today G51.32 - Clonic hemifacial spasm, left Coding Level of Care Code Est Pt Level 1 (46867) Diagnoses Hemifacial spasm of left side of face G51.32 CPT Codes Botox Injection - Botox 2: 87387 - Facial Nerve ([id number])
== END 2025-05-11 08:55 | disposition home or self-care (01) ==
LOC: HO.HSMS 08:12
PROVIDERS: PCP Nurse Practitioner Family; Visit Provider Psychiatry & Neurology Neurology
DX: G51.32 Clonic hemifacial spasm, left (principal)
CPT/HCPCS: 64612

== ENCOUNTER → 2025-05-11 08:12 | Outpatient (BNVA) | payer OTHER, SELFPAY | PROVIDERS: PCP Nurse Practitioner Family; Visit Provider Psychiatry & Neurology Neurology | DX: G51.32 Clonic hemifacial spasm, left (principal) | CPT/HCPCS: 64612; 99211; J0585 ==